=== PATIENT | male | born 1960 ===

== ENCOUNTER 2017-01-03 11:47 | Emergency (ER) | payer OTHER ==
[2017-01-03 11:58] VITALS: BP 123/84; PULSE 81; RESP 16; TEMP 98.3; O2SAT 98
--- NOTE | 2017-01-03 12:05 | C.PDOC ---
History Of Present Illness 56 y/o male presents to ED with complaints of increase pain for 3 days on right upper back skin mass developed 1 year ago. Patient denies fever, chills, trauma , discharge, nausea, vomiting or any other complaints at this time. SKIN MASS X 1 YEAR, INCR PAIN X 3 DAYS. R UPPER BACK. NO TRAUMA, DC, FEVER EXAM NAD SKIN +CYST W LOCAL ERYTHEMA, TEND +FLUCTUANCE Time Seen by Provider: 01/03/17 12:03 Chief Complaint (Nursing): Abnormal Skin Integrity History Per: Patient History/Exam Limitations: no limitations Onset/Duration Of Symptoms: Days Current Symptoms Are (Timing): Still Present Location Of Injury: Right: Back Quality Of Symptoms: Painful Past Medical History Reviewed: Historical Data, Nursing Documentation, Vital Signs Vital Signs: Last Vital Signs Temp 98.3 F 01/03/17 11:56 Pulse 81 01/03/17 11:56 Resp 16 01/03/17 11:56 BP 123/84 01/03/17 11:56 Pulse Ox 98 01/03/17 12:35 Family History: States: No Known Family Hx - Social History Hx Alcohol Use: No Hx Substance Use: No - Immunization History Hx Tetanus Toxoid Vaccination: No Hx Influenza Vaccination: No Hx Pneumococcal Vaccination: No Review Of Systems Except As Marked, All Systems Reviewed And Found Negative. Constitutional: Negative for: Fever, Chills Gastrointestinal: Negative for: Nausea, Vomiting Musculoskeletal: Positive for: Back Pain Skin: Negative for: Rash Neurological: Negative for: Weakness, Numbness Physical Exam - Physical Exam Appears: No Acute Distress Skin: Warm, No Rash, Other (+cyst to right upper back with local erythema, + tenderness and flunctuance) Eye(s): bilateral: Normal Inspection Oral Mucosa: Moist Neck: Normal ROM, Supple Chest: Symmetrical Extremity: Normal ROM, Capillary Refill (<2 seconds), No Deformity Neurological/Psych: Oriented x3, Normal Speech, Normal Cognition, Normal Motor, Normal Sensation ED Course And Treatment O2 Sat by Pulse Oximetry: 98 (RA) Pulse Ox Interpretation: Normal - Incision & Drainage Of Abscess Anesthesia: Lidocaine 2%, With Epi Prep Used: Betadine Procedure: Incised W/Scalpel Blade#: (11), Drained Pus, Probed To Break Up Loculations, Packed W/Gauze Disposition Counseled Patient/Family Regarding: Studies Performed, Diagnosis - Disposition Referrals: [facility] [Outside] at [facility] [Outside] Disposition: HOME/ ROUTINE Disposition Time: 12:32 Condition: IMPROVED Additional Instructions: VUELVA EN 2 JENSEN PARA LA REEVALUACIN DE [place], POSIBLE CAMBIO DE EMBALAJE. NORM MOTRIN / TYLENOL SEGN LO DIRIGIDO PARA EL DOLOR, HIELO A MELITON AFECTADA. Instructions: Abscess Incision and Drainage (ED), Cyst (ED) Forms: [employer] (Kinyarwanda) Print Language: CAMBODIAN - Clinical Impression Clinical Impression: Abscess, Sebaceous cyst - PA / [employer] / Resident Statement MD/DO has examined the patient and agrees with the treatment plan. - Scribe Statement The provider has reviewed the documentation as recorded by the Scribdrake Bonilla All medical record entries made by the Scribe were at my direction and personally dictated by me. I have reviewed the chart and agree that the record accurately reflects my personal performance of the history, physical exam, medical decision making, and the department course for this patient. I have also personally directed, reviewed, and agree with the discharge instructions and disposition.
[2017-01-03] MEDS ORDERED: Lidocaine 2% w Epi 1:100,000 Inj IJ ONE ×2 (12:06→12:14)
== END 2017-01-03 12:41 | disposition home or self-care (01) ==
LOC: C.ER 11:47
DX: L02.212 Cutaneous abscess of back [any part, except buttock and flank] (principal); L72.3 Sebaceous cyst
CPT/HCPCS: 10060; 96372; 99284; J1885

== ENCOUNTER 2017-01-08 10:28 | Emergency (ER) | payer OTHER, SELFPAY ==
[2017-01-08 10:35] VITALS: BP 126/79; PULSE 73; RESP 15; TEMP 97.7; O2SAT 98
[2017-01-08] MEDS ORDERED: Bacitracin 500 Units/gm Oint Foilpak UD TOP ONE (10:41)
--- NOTE | 2017-01-08 10:42 | C.PDOC ---
Time Seen by Provider: 01/08/17 10:33 Chief Complaint (Nursing): Wound Check Past Medical History Vital Signs: Last Vital Signs Temp 97.7 F 01/08/17 10:34 Pulse 73 01/08/17 10:34 Resp 15 01/08/17 10:34 BP 126/79 01/08/17 10:34 Pulse Ox 98 01/08/17 10:34 - Social History Hx Alcohol Use: No Hx Substance Use: No - Immunization History Hx Tetanus Toxoid Vaccination: No Hx Influenza Vaccination: No Hx Pneumococcal Vaccination: No ED Course And Treatment O2 Sat by Pulse Oximetry: 98 Disposition - Disposition Forms: [employer] (South African)
--- NOTE | 2017-01-08 10:42 | C.PDOC ---
History Of Present Illness 56 y/o male, s/p I&D procedure at his right shoulder on 01/03, presents to the ED for wound check. Patient notes he feels better and is experiencing less pain/ swelling than before at abscess. He denies fever, chills, and discharge from the affected area. Time Seen by Provider: 01/08/17 10:33 Chief Complaint (Nursing): Wound Check History Per: Patient History/Exam Limitations: no limitations Onset/Duration Of Symptoms: Days Ago Current Symptoms Are (Timing): Still Present Location Of Injury: Left: Shoulder Quality Of Symptoms: Painful. denies: Itching, Swollen, Draining Severity: Mild Additional History Per: Patient Past Medical History Reviewed: Historical Data, Nursing Documentation, Vital Signs Vital Signs: Last Vital Signs Temp 97.7 F 01/08/17 10:34 Pulse 73 01/08/17 10:34 Resp 15 01/08/17 10:34 BP 126/79 01/08/17 10:34 Pulse Ox 98 01/08/17 15:09 - Medical History PMH: No Chronic Diseases Surgical History: No Surg Hx Family History: States: No Known Family Hx - Social History Hx Alcohol Use: No Hx Substance Use: No - Immunization History Hx Tetanus Toxoid Vaccination: No Hx Influenza Vaccination: No Hx Pneumococcal Vaccination: No Review Of Systems Except As Marked, All Systems Reviewed And Found Negative. Constitutional: Negative for: Fever, Chills Musculoskeletal: Positive for: Shoulder Pain (left, s/p abscess I&D) Physical Exam - Physical Exam Appears: Well, Non-toxic, No Acute Distress Skin: Normal Color, Warm, Dry, Other (right shoulder: well-healing abscess with approc 0.5cm closing wound. no fluctatuance or induration, no discharge ) Head: Normacephalic Eye(s): bilateral: Normal Inspection Oral Mucosa: Moist Cardiovascular: Rhythm Regular Respiratory: Normal Breath Sounds, No Rales, No Rhonchi, No Wheezing Extremity: Normal ROM, Capillary Refill (< 2 sec all digits) Neurological/Psych: Normal Speech, Normal Cognition Gait: Steady ED Course And Treatment O2 Sat by Pulse Oximetry: 98 (on RA) Pulse Ox Interpretation: Normal Progress Note: Dressing removed and topical bacitracin applied to wound + gauze dressing. Patient tolerated well. He was instructed to follow up with PMD in 1 -2 days, and understands he should return to ED if symptoms worsen. Disposition Counseled Patient/Family Regarding: Diagnosis, Need For Followup - Disposition Referrals: [facility] [Outside] Disposition: HOME/ ROUTINE Disposition Time: 10:45 Condition: STABLE Additional Instructions: FOLLOW UP WITH YOUR DOCTOR IN 1-2 DAYS RETURN TO ER IF SYMPTOMS WORSEN Instructions: Acute Wound Care (ED) Forms: [employer] (German) Print Language: BOTSWANAN - Clinical Impression Clinical Impression: Visit for wound check - Scribe Statement The provider has reviewed the documentation as recorded by the Scribe (Tamera Lea) Provider Attestation: All medical record entries made by the Scribe were at my direction and personally dictated by me. I have reviewed the chart and agree that the record accurately reflects my personal performance of the history, physical exam, medical decision making, and the department course for this patient. I have also personally directed, reviewed, and agree with the discharge instructions and disposition.
[2017-01-08] MEDS ORDERED: Bacitracin 500 Units/gm Oint Foilpak UD ONE (10:43)
== END 2017-01-08 10:52 | disposition home or self-care (01) ==
LOC: C.ER 10:28
DX: Z48.00 Encounter for change or removal of nonsurgical wound dressing (principal)

== ENCOUNTER 2017-06-06 12:21 | Emergency (ER) | payer SELFPAY ==
[2017-06-06 12:21] VITALS: BMI 23.8
== END 2017-06-06 13:43 | disposition left against medical advice (07) ==
LOC: C.ER 12:21
DX: Z02.89 Encounter for other administrative examinations (principal); M54.9 Dorsalgia, unspecified

== ENCOUNTER 2018-02-16 11:21 | Emergency (ER) | payer OTHER, SELFPAY ==
[2018-02-16 11:21] VITALS: BMI 23.8
[2018-02-16 11:31] VITALS: BP 139/86; PULSE 88; RESP 17; TEMP 98.5; O2SAT 99
--- NOTE | 2018-02-16 13:03 | C.PDOC ---
History Of Present Illness 57 y/o male with hx of chronic back pain comes to ed requesting note for light duty for work. pt sts job duties changed, needs to lift more heavy things and this exacerbates his pain. no worsening of condition. Time Seen by Provider: 02/16/18 12:05 Chief Complaint (Nursing): Lower Extremity Problem/Injury Past Medical History Vital Signs: Last Vital Signs Temp 98.5 F 02/16/18 11:27 Pulse 88 02/16/18 11:27 Resp 17 02/16/18 11:27 BP 139/86 02/16/18 11:27 Pulse Ox 99 02/16/18 11:27 Family History: States: Unknown Family Hx - Social History Hx Alcohol Use: No Hx Substance Use: No - Immunization History Hx Tetanus Toxoid Vaccination: No Hx Influenza Vaccination: No Hx Pneumococcal Vaccination: No ED Course And Treatment O2 Sat by Pulse Oximetry: 99 Disposition Counseled Patient/Family Regarding: Diagnosis, Need For Followup - Disposition Referrals: [facility] [Outside] Disposition: HOME/ ROUTINE Disposition Time: 13:04 Condition: GOOD Additional Instructions: Por favor jean pierre el seguimiento en la clnica mdica o con duncan mdico la prxima semana. Regrese a la clayton de emergencias por cualquier dolor que empeore. Forms: Gen Discharge Inst New Zealander, [facility] (Czech), [facility] (New Zealander), Work Excuse Print Language: LATVIAN - Clinical Impression Clinical Impression: Chronic back pain
== END 2018-02-16 13:12 | disposition home or self-care (01) ==
LOC: C.ER 11:21
DX: G89.29 Other chronic pain (principal); M54.9 Dorsalgia, unspecified